=== PATIENT | female | born 1950 | race Caucasian/White ===

== ENCOUNTER 2018-10-05 17:25 | Emergency (ER) | payer OTHER ==
[~2018-10-05] VITALS: Ht 165.1 cm; Wt 85.2 kg
--- NOTE | 2018-10-05 17:43 | PHYS DOC ---
Past History Past Medical History: No Pertinent History Past Surgical History: Appendectomy Smoking: Non-smoker Adult General Chief Complaint Chief Complaint: WRIST PAIN HPI HPI Patient is a 68 year old right handed female who presents with pinning of injury to left wrist. Patient states she slipped on ice and landed on hypertension extended left wrist without head injury or other injuries and denies loss of consciousness. Patient complaining of deformity and pain of left wrist that resolved at arrival to ER. Patient denies focal neuro deficit. Review of Systems Review of Systems Constitutional: Denies fever or chills [] Eyes: Denies change in visual acuity, redness, or eye pain [] HENT: Denies nasal congestion or sore throat [] Respiratory: Denies cough or shortness of breath [] Cardiovascular: No additional information not addressed in HPI [] GI: Denies abdominal pain, nausea, vomiting, bloody stools or diarrhea [] : Denies dysuria or hematuria [] Musculoskeletal: Denies back pain, reports joint pain [] Integument: Denies rash or skin lesions [] Neurologic: Denies headache, focal weakness or sensory changes [] Endocrine: Denies polyuria or polydipsia [] All other systems were reviewed and found to be within normal limits, except as documented in this note. Physical Exam Physical Exam Constitutional: Well developed, well nourished, no acute distress, non-toxic appearance. [] HENT: Normocephalic, atraumatic Eyes: PERRLA, EOMI, conjunctiva normal, no discharge. [] Neck: Normal range of motion, no tenderness, supple, no stridor. [] Cardiovascular:Heart rate regular rhythm, no murmur [] Lungs & Thorax: Bilateral breath sounds clear to auscultation [] Skin: Warm, dry, no erythema, no rash. [] Back: No tenderness, no CVA tenderness. [] Extremities: Left wrist with deformity and edema without tenderness, painless range of motion, no neurovascular deficit. Neurologic: Alert and oriented X 3, normal motor function, normal sensory function, no focal deficits noted. [] Psychologic: Affect normal, judgement normal, mood normal. [] EKG EKG [] Radiology/Procedures Radiology/Procedures [address] [address] IMAGING REPORT Signed PATIENT: RADHA PILLAI ACCOUNT: [id number] : 1950 LOCATION: ER AGE: 68 SEX: F EXAM STATUS: DEP ER ORD. PHYSICIAN: GAB ONEAL MD REASON: fall PROCEDURE: WRIST 3V LEFT Left wrist x-rays 3 views HISTORY: Fall, left wrist pain. FINDINGS: Acute traumatic nondisplaced transverse fracture ulna styloid. Acute traumatic comminuted fracture of the distal radius metaphysis with mild dorsal angulation and buckling of the fracture fragments, extension to the articular cortex at the wrist cannot be excluded. No fracture or dislocation of the carpal bones. Soft tissues are unremarkable. IMPRESSION: Acute traumatic fractures of the distal radius and ulna as described above. Electronically signed by: Joao Griffith MD (10/06/2018 2:32 AM) [facility] DICTATED AND SIGNED BY: JOAO GRIFFITH MD DATE: 10/06/18 023 CC: GAB ONEAL MD; PCP,UNKNOWN ~ Course & Med Decision Making Course & Med Decision Making Pertinent Imaging studies reviewed. (See chart for details) Evaluation of patient in ER showed 68-year-old female patient with a fall on hyperextended left wrist and deformity of left wrist without ER. X-ray showed distal radial and styloid fracture fracture. Patient did not want to have pain medication in ER. Posterior his to splint was applied with good cap refill and immobilization. Patient was informed about on-call orthopedic physician and needs to follow-up. Prescription for hydrocodone was given. Dragon Disclaimer Dragon Disclaimer This electronic medical record was generated, in whole or in part, using a voice recognition dictation system. Departure Departure: Impression: Primary Impression: Closed fracture of left distal radius Additional Impressions: Fall due to ice or snow Fracture of ulnar styloid Disposition: HOME, SELF-CARE (at 1800) Condition: IMPROVED Referrals: PCP,UNKNOWN (PCP) Patient Instructions: Radial Fracture Additional Instructions: Apply ice on affected area Follow-up with finance and administration manager orthopedic physician , call [phone] tomorrow to make an appointment Follow-up with your primary care physician in 3-5 days Return to ER if not getting better Scripts Hydrocodone Bit/Acetaminophen (NORCO 5-325 TABLET) 1 Each Tablet 1 TAB PO PRN Q6HRS PRN for PAIN, #20 TAB 0 Refills Prov: GAB ONEAL MD 10/05/18 Problem Qualifiers GAB ONEAL MD Oct 05, 2018 17:43
[2018-10-05 17:46] VITALS: BP 175/90
[2018-10-05] MEDS ORDERED: HYDR-3165 PO (17:59)
--- NOTE | 2018-10-06 02:37 | RAD ---
Left wrist x-rays 3 views HISTORY: Fall, left wrist pain. FINDINGS: Acute traumatic nondisplaced transverse fracture ulna styloid. Acute traumatic comminuted fracture of the distal radius metaphysis with mild dorsal angulation and buckling of the fracture fragments, extension to the articular cortex at the wrist cannot be excluded. No fracture or dislocation of the carpal bones. Soft tissues are unremarkable. IMPRESSION: Acute traumatic fractures of the distal radius and ulna as described above. Electronically signed by: Joao Griffith MD (10/06/2018 2:32 AM) [facility]
== END 2018-10-05 18:20 | disposition home or self-care (01) ==
LOC: ER 17:25
DX: S52.502A Unspecified fracture of the lower end of left radius, initial encounter for closed fracture (principal); S52.612A Displaced fracture of left ulna styloid process, initial encounter for closed fracture; W00.0XXA Fall on same level due to ice and snow, initial encounter; Y93.89 Activity, other specified; Y92.89 Other specified places as the place of occurrence of the external cause; Y99.8 Other external cause status
CPT/HCPCS: 29125; 73110; 99283

== ENCOUNTER 2021-02-23 15:35 | Inpatient (IN) | payer OTHER, MEDICARE ==
[2021-02-23] VITALS (26 sets, daily range): BP systolic 135–217; BP diastolic 65–98
[~2021-02-23] VITALS: Ht 167.6 cm; Wt 69.1 kg
[~2021-02-23 15:35] MED LIST: HYDR-3165 PO
[2021-02-23] MEDS ORDERED: ZOLPIDEM 5 MG TABLET. PO PRN ×2 (16:45)
[2021-02-23] MEDS ORDERED: LORazepam 0.5 MG TABLET PO PRN (16:45)
[2021-02-23] MEDS ORDERED: ACETAMINOPHEN 500 MG TABLET PO PRN (16:45)
--- NOTE | 2021-02-23 17:13 | EKG ---
[address] [address] Test Date: 2021-02-23 Test Time: 16:51:42 Pat Name: RADHA PILLAI Department: Room: 121 A Gender: F Media Marketing Manager: : 1950 Requested By: HUBER PORTILLO Order Number: [id number] Reading MD: Measurements Intervals [place] Rate: 79 P: 59 MS: 230 QRS: 44 QRSD: 86 T: 36 QT: 374 QTc: 430 Interpretive Statements SINUS RHYTHM PROLONGED MS INTERVAL LEFT ATRIAL ABNORMALITY ABNORMAL ECG RI6.01 No previous ECG available for comparison
[2021-02-23 18:00] LABS: BASO # 0.1 x10^3/uL (0.0-0.2); BASO % 1 % (0-3); EOS # 0.1 x10^3/uL (0.0-0.7); EOS % 1 % (0-3); HEMATOCRIT 44.5 % (36.0-47.0); HEMOGLOBIN 14.8 g/dL (12.0-15.5); LYMPH # 1.1 x10^3/uL (1.0-4.8); LYMPH % 13 % (24-48); MEAN CORPUSCULAR HEMOGLOBIN 28 pg (25-35); MEAN CORPUSCULAR HGB CONC 33 g/dL (31-37); MEAN CORPUSCULAR VOLUME 85 fL (79-100); MONO # 0.5 x10^3/uL (0.0-1.1); MONO % 6 % (0-9); NEUT # 6.8 x10^3uL (1.8-7.7); NEUT % 80 % (31-73); PLATELET COUNT 247 x10^3/uL (140-400); RED BLOOD COUNT 5.25 x10^6/uL (3.50-5.40); RED CELL DISTRIBUTION WIDTH 13.2 % (11.5-14.5); WHITE BLOOD COUNT 8.5 x10^3/uL (4.0-11.0)
--- NOTE | 2021-02-23 18:24 | RAD ---
Examination: CT chest without contrast HISTORY: History of abnormal chest x-ray COMPARISON: None available Technique: Axial CT images of chest were performed without contrast. Coronal and sagittal reformats a re performed Exposure: One or more of the following individualized dose reduction techniques were utilized for thi s examination: 1. Automated exposure control 2. Adjustment of the mA and/or kV according to patient size 3. Use of iterative reconstruction technique FINDINGS: The visualized thyroid gland grossly appears unremarkable. The central airways are patent. The heart size grossly appears unremarkable. The caliber of the aorta grossly appears unremarkable. No evidence of significant mediastinal lymphadenopathy. There is a 1 cm nodule identified in the left lingula of the lung. Minimal bibasilar lung atelectasis or infiltrates. Calcification of the bilateral breast p rosthesis. The visualized noncontrasted liver, spleen, adrenals grossly appears unremarkable. Mild degenerative changes thoracic spine. IMPRESSION: 1. 1 cm nodule identified in the left lingula of the lung. Recommend follow-up nonemergent PET/CT sc an. 2. Minimal bibasilar lung atelectasis or infiltrates. Electronically signed by: Noe Martinez MD (02/23/2021 6:22 PM) [id number]
[2021-02-23 18:51] LABS: ALBUMIN 3.7 g/dL (3.4-5.0); ALBUMIN/GLOBULIN RATIO 1.1 (1.0-1.7); CALCIUM 9.3 mg/dL (8.5-10.1); CREATININE 0.8 mg/dL (0.6-1.0); GFR 70.9; POTASSIUM 3.5 mmol/L (3.5-5.1); TOTAL BILIRUBIN 0.7 mg/dL (0.2-1.0)
--- NOTE | 2021-02-23 19:29 | NUR ---
Patient arrived to the unit via ambulation accompanied by her spouse. Patient was originally admitted to room [address] Galeano requested patient status as ICU due to HTN crisis. Patient is complaining of a headache but no complaints of any other symptoms. No chest pain reported. Admitting BP is 213/90. Dr. Galeano ordered a Cardene drip to be administered. Patient is alert and oriented x 4, oriented to unit routines, currently in bed with side rails up X's 2 and call light with in reach.
--- NOTE | 2021-02-23 19:35 | NUR ---
Patient was very reactive to the Cardene drip. Pressure dropped significantly. Dr. Galeano was called with the patient status and the drip was stopped at this time and oral Nifedipine was administered. WCTM monitor patients blood pressure and consult with Dr. Galeano if patient condition begins to change.
[2021-02-24] VITALS (13 sets, daily range): BP systolic 116–147; BP diastolic 52–70
--- NOTE | 2021-02-24 05:55 | NUR ---
Pt awake in bed at change of shift visiting with at bedside. Pt is A&Ox4, very pleasant and cooperative with cares and assessment. Pt with improving BP since oral Procardia and titration of IV Cardene. Pt slept great during night and BP back to baseline. Pt has been NPO since midnight for renal US in AM. Pt hopeful for DC home later today.
[2021-02-24] MEDS ORDERED: NIFE30TA15 PO (09:44)
[2021-02-24] MEDS ORDERED: METO50TA29 PO (09:44)
--- NOTE | 2021-02-24 09:53 | DISCH ---
DISCHARGE ORDERS DISCHARGE MEDICATIONS: Home Meds Active Scripts Nifedipine (NIFEDIPINE ER) 30 Mg Tablet.er, 1 TAB PO DAILY for htn, #30 TAB 5 Refills Prov:HUBER PORTILLO MD 02/24/21 Metoprolol Succinate (METOPROLOL SUCCINATE ( XL )) 50 Mg Tab.er.24h, 1 TAB PO DAILY for htn, #30 TAB 5 Refills Prov:HUBER PORTILLO MD 02/24/21 Hydrocodone Bit/Acetaminophen (NORCO 5-325 TABLET) 1 Each Tablet, 1 TAB PO PRN Q6HRS PRN for PAIN, #20 TAB 0 Refills Prov:GAB ONEAL MD 10/05/18 HUBER PORTILLO MD Feb 24, 2021 09:53
--- NOTE | 2021-02-24 10:18 | NUR ---
Pt discharged today by Dr. Galeano. All questions addressed and verbalized understanding of paperwork and prescriptions. GCS 15, VSS and ambulatory upon discharge. Escorted by . CC, RN
--- NOTE | 2021-02-24 10:59 | RAD ---
US RENAL DUPLEX History: Reason: htn urgency / Spl. Instructions: / History: Comparison: None. Technique: Multiple grayscale, color flow, and Doppler spectral waveform analysis images of the abdom inal aorta and renal arteries were obtained. Findings: Abdominal aorta peak systolic velocity: 1:15 2 cm/sec. Atheromatous plaque within the aorta. Right main renal artery peak systolic velocity: 176 cm/sec. Right renal artery to aorta ratio: 1.2 Left main renal artery peak systolic velocity: 165 cm/sec. Left renal artery to aorta ratio: 1.1 Renal veins are patent. IVC unremarkable. The right kidney measures 9.7 x 3.7 x 3.5 cm. The left kidney measures 9.5 x 4.8 x 5.1 cm. Kidneys ar e normal in echotexture. No hydronephrosis. Elevated right renal artery resistive indices 0.8 and lef t 0.8. IMPRESSION: 1. No evidence of renal artery stenosis. 2. Elevated bilateral renal artery resistive indices, may indicate medical renal disease. Electronically signed by: Wilberto Franklin DO (02/24/2021 10:56 AM) [id number]
[2021-02-24 19:27] LABS: THYROID STIM HORMONE (TSH) 2.77 uIU/mL (0.358-3.740)
== END 2021-02-24 10:15 | disposition home or self-care (01) | DRG 305 ==
LOC: 1 SOUTH 15:35 → ICU 16:52
PROVIDERS: ADMIT Family Medicine; ATTEND Family Medicine
DX: I16.0 Hypertensive urgency (principal); I10 Essential (primary) hypertension; F41.1 Generalized anxiety disorder; Z90.49 Acquired absence of other specified parts of digestive tract; Z88.2 Allergy status to sulfonamides
CPT/HCPCS: 36415; 71250; 76770; 80053; 80061; 82550; 83880; 84443; 84484; 85025; 85379; 87086; 93005; J7050

== ENCOUNTER → 2021-03-02 | Outpatient (CLI) | payer OTHER ==
[2021-02-24 09:53] VITALS: BP 135/63
[~2021-03-02] MED LIST changes: +METO50TA29 PO; +NIFE30TA15 PO
--- NOTE | 2021-03-14 14:51 | RAD ---
MG BILAT SCREEN+BETTE 03/02/2021 3:35 PM INDICATION: Asymptomatic screening mammogram. COMPARISON: None available TECHNIQUE: 3D tomosynthesis was performed in CC and MLO projections. 2D views were obtained from the 3D data. CAD was utilized as needed. Implanted implant displaced views were obtained. FINDINGS: Bilateral retropectoral silicone implants are present. There is suggestion of extracapsular rupture of the right silicone implant. Breast density: Category B: There are scattered areas of fibroglandular density. Right breast: There are no suspicious microcalcifications, masses or areas of architectural distortio n. Left breast: There are no suspicious microcalcifications, masses or areas of architectural distortion . Bilateral mammogram is compared to prior examinations appears unchanged. IMPRESSION: 1. Benign findings with extracapsular rupture of the right breast implant. 2. Negative left mammogram. BI-RADS category: 2; Benign Recommendations: Recommend annual screening mammography in one year. Electronically signed by: Essie Mcadams MD (03/14/2021 2:48 PM) [id number]
== END ==
LOC: MAMMO 15:34
PROVIDERS: ATTEND Family Medicine
DX: Z12.31 Encounter for screening mammogram for malignant neoplasm of breast (principal)
CPT/HCPCS: 77063; 77067

== ENCOUNTER → 2021-05-09 | Day surgery (SDC) | payer OTHER ==
[~2021-05-09] MED LIST changes: +IPRATRPIUM/ALBUTEROL 0.5/2.5MG 3 ML NEBU. NEB PRN; +IV RINGERS SOLUTION,LACTATED 1,000 ML IV SCH; +LIDOCAINE 2% PF 5 ML VIAL. ONE; +MIDAZOLAM HCL PF 2 MG/2 ML VIAL. IV ONE; +ONDANSETRON PF 4 MG/2 ML VIAL. IV PRN; +PROPOFOL 10,000 MCG/ML (20ML) VIAL IV ONE
[2021-05-09 11:47] VITALS: BP 138/61
== END | disposition home or self-care (01) ==
LOC: SURG 09:12
PROVIDERS: ATTEND Internal Medicine Gastroenterology
DX: Z12.11 Encounter for screening for malignant neoplasm of colon (principal); D12.2 Benign neoplasm of ascending colon; K57.30 Diverticulosis of large intestine without perforation or abscess without bleeding; I10 Essential (primary) hypertension; Z98.890 Other specified postprocedural states; Z79.899 Other long term (current) drug therapy; Z20.822 Contact with and (suspected) exposure to COVID-19; Z88.2 Allergy status to sulfonamides
CPT/HCPCS: 45385; C9803; J2001; J2704; U0003